=== PATIENT | male | born 1980 | race Caucasian/White ===

== ENCOUNTER 2020-03-31 07:18 | Emergency (ER) | payer BC ==
[~2020-03-31] VITALS: Ht 167.6 cm; Wt 79.4 kg
--- NOTE | 2020-03-31 07:30 | NUR ---
Pt triaged and placed in fast track area.
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
[2020-03-31] MEDS ORDERED: HYDROcodone/ACETAMIN 5-325 MG TAB (NORCO/ VICODIN) PO ONE (07:45)
[2020-03-31] MEDS ORDERED: IBUPROFEN 600 MG TABLET PO ONE (07:45)
--- NOTE | 2020-03-31 07:45 | NUR ---
ER Dr. Don at bedside examining patient.
[2020-03-31 07:48] VITALS: BP_SYST 174
--- NOTE | 2020-03-31 08:08 | NUR ---
Patient transported to radiology via wheelchair, accompanied by staff.
[2020-03-31 09:18] VITALS: BP_SYST 154
--- NOTE | 2020-03-31 09:19 | NUR ---
Patient given written and verbal discharge instructions and verbalizes understanding. ER MD discussed with patient the results and treatment provided. Patient in stable condition. ID arm band removed. Rx of Motrin and [place] given. Patient educated on pain management and to follow up with PMD. Pain Scale 4/10 tolerable for patient . Opportunity for questions provided and answered. Medication side effect fact sheet provided.
--- NOTE | 2020-03-31 12:58 | NUR ---
Pharmacy called for [place] [facility], is invalid because it doesn't have physician signature. OK to switch to Tylenol #[address] Don.
== END 2020-03-31 09:18 | disposition home or self-care (01) ==
LOC: SED 07:18
DX: M54.6 Pain in thoracic spine (principal)
CPT/HCPCS: 71046-TC; 72072-TC; 99284